=== PATIENT | female | born 1980 | race African-American/Black ===

== ENCOUNTER 2017-01-25 12:02 | Emergency (ER) | payer OTHER ==
[~2017-01-25] VITALS: Ht 180.3 cm; Wt 95.0 kg
[~2017-01-25 12:02] MED LIST: BACTRIM DS1 TAB PO; METRONIDAZOL500 MG PO; MONISTAT1 VA; NAPROSYN500 MG PO; PRILOSEC20 MG/CAP PO
[2017-01-25] MEDS ORDERED: MOTRIN800 MG PO (12:49)
[2017-01-25 13:00] VITALS: BP 122/82
== END 2017-01-25 13:00 | disposition home or self-care (01) | DRG 605 ==
LOC: ED 12:02
DX: S80.02XA Contusion of left knee, initial encounter (principal); W17.89XA Other fall from one level to another, initial encounter; Y92.414 Local residential or business street as the place of occurrence of the external cause